=== PATIENT | male | born 1985 | race Caucasian/White ===

== ENCOUNTER 2017-04-18 15:53 | Emergency (ER) | payer BC ==
[~2017-04-18] VITALS: Ht 182.9 cm; Wt 127.9 kg
[~2017-04-18 15:53] MED LIST: ANTIVERT25 MG PO; MELATONIN5 M3 PO; MOTRIN800 MG PO; PERCOCET 5/31 TABLET PO; ZOFRAN4 MG PO
[2017-04-18 17:35] LABS: HEMATOCRIT 44.3 % (38.0-50.0); MCH 28.5 PG (29.0-34.0); MCHC 32.7 G/DL (30.0-36.0); MEAN PLAT.VOLUME 10.6 uM^3 (9.0-12.4); PLATELET COUNT 229 K/uL (156-360); RBC DIS.WIDTH-CV 12.6 % (11.8-14.6); RED BLOOD COUNT 5.09 M/uL (4.00-5.50); WHITE BLOOD COUNT 11.5 K/uL (4.1-10.2)
[2017-04-18 17:45] LABS: CHLORIDE 105 mEq/L (99-109); SODIUM 138 mEq/L (136-147)
[2017-04-18 17:46] LABS: GLUCOSE 97 mg/dL (70-99)
[2017-04-18 17:48] LABS: ANION GAP 10 MEQ/L (2-14)
[2017-04-18 17:50] LABS: GFR ESTIMATE (CALCULATED) > 59 mL/min/
[2017-04-18 17:51] LABS: UREA NITROGEN (BUN) 14 mg/dL (9-23)
[2017-04-18 17:58] LABS: TROP-I INTERPRETATION NEGATIVE; TROPONIN-I < 0.01 ng/mL (0.0-0.30)
[2017-04-18 20:16] LABS: TROP-I INTERPRETATION NEGATIVE; TROPONIN-I < 0.01 ng/mL (0.0-0.30)
[2017-04-18] MEDS ORDERED: MILLIPRED DP5 M1 PO (20:22)
[2017-04-18 20:35] VITALS: BP 112/76
== END 2017-04-18 20:38 | disposition home or self-care (01) ==
LOC: EXP 15:53 → EME 15:53 → EXP 20:38
PROVIDERS: Physician Assistant Medical
DX: L23.7 Allergic contact dermatitis due to plants, except food (principal); R06.02 Shortness of breath; Z87.442 Personal history of urinary calculi; F17.200 Nicotine dependence, unspecified, uncomplicated
CPT/HCPCS: 71020; 80048; 84484; 85027; 93005; 99281; 99284; J7512